=== PATIENT | male | born 1960 | race Native Hawaiian/Other Pacific Islander ===

== ENCOUNTER 2016-09-12 09:06 | Emergency (ER) | payer BC ==
[~2016-09-12] VITALS: Ht 188 cm; Wt 115.7 kg
[2016-09-12 09:20] VITALS: TEMP 97.6
[2016-09-12 09:57] LABS: PLATELET COUNT 197 K/uL (142-355)
[2016-09-12 10:06] LABS: POTASSIUM 3.9 mmol/L (3.6-5.2); SODIUM 133 mmol/L (136-145)
[2016-09-12 11:25] VITALS: BP 154/86
== END 2016-09-12 11:25 | disposition home or self-care (01) ==
LOC: ED 09:06
DX: N20.1 Calculus of ureter (principal); I10 Essential (primary) hypertension; R11.2 Nausea with vomiting, unspecified
CPT/HCPCS: 80053; 80061; 85027; 96360; 96361; 96374; 96375; 99284; J1885; J2550